=== PATIENT | female | born 1960 | race Caucasian/White ===

== ENCOUNTER → 2016-08-23 | Outpatient (CLI) | payer BC ==
[~2016-08-23] MED LIST: CYTOMEL5 MCG PO; DEXILANT30 MG PO; FLONAS; FLONASE 0.05% N16 G1; PERCOCET5/325 PO; PROTONIX PO; SINGULAIR PO; SYNTHROID PO; SYNTHROID0.05 MG PO; SYNTHROID112 MCG PO
--- NOTE | ~2016-08-23 | MY11 ---
[facility] A Service of [facility] RADIOLOGY TEXT RESULTS PATIENT: JUAN PERSON LOCATION: [facility] : 60 UNIT #: [id number] AGE: [address]: Marisa Quevedo APRN SEX: F ORDER DR: [id number] [facility] [address]. [place], [place] [address] [id number] O MR#: [id number] Acc #: [id number] NAME: JUAN PERSON. : 1960 SEX: F STUDY DATE/TIME: 08/23/2016 10:27 UNIT: [facility] ROOM: STUDY DESCRIPTION: MY Mammogram Screening Dig Rico Attending Physician: Marisa Quevedo A.P.R.N. Ordering Physician: Marisa Quevedo A.P.R.N. Primary Care Physician: Deepak Munroe M.D. MEDICAL IMAGING REPORT This report is preliminary unless electronic signature is present EXAM Bilateral digital screening mammogram with CAD. INDICATION Breast cancer screening. 55-year-old asymptomatic female. No personal or family history of breast cancer. COMPARISON 08/18/2015, 08/08/2014, 06/19/2013, 03/29/2012, 04/15/2011, 03/15/2011, 02/25/2010, 01/21/2009, 10/26/2007, 10/22/2006, 11/15/2005. FINDINGS There are scattered fibroglandular tissues. No suspicious findings are present. IMPRESSION No mammographic evidence of malignancy. Annual screening mammography and clinical breast exam are recommended. A result letter will be sent to the patient. Patients over the age of 40 are entered into a reminder system with target due date for the next mammogram. BIRADS: 1 Negative Dictated by... Emanuel Saleh M.D. THIS IS AN ELECTRONICALLY VERIFIED REPORT Emanuel Saleh M.D. at 08/25/2016 12:04 PM [facility] A Service of [facility] RADIOLOGY TEXT RESULTS PATIENT: JUAN PERSON LOCATION: [facility] : 60 UNIT #: [id number] AGE: [address]: Marisa Quevedo APRN SEX: F ORDER DR: Charly TD: 08/23/2016 13:28 JOB #: [id number] MEDICAL IMAGING REPORT COPY
== END | disposition home or self-care (01) ==
LOC: CWCC 09:55
DX: Z12.31 Encounter for screening mammogram for malignant neoplasm of breast (principal)
CPT/HCPCS: G0202

== ENCOUNTER → 2016-09-08 | Outpatient (CLI) | payer BC ==
--- NOTE | ~2016-09-08 | CT3 ---
[facility] of [facility] RADIOLOGY TEXT RESULTS PATIENT: JUAN PERSON LOCATION: [facility] : 60 UNIT #: [id number] AGE: [address]: Marisa Quevedo APRN SEX: F ORDER DR: [id number] [facility] [address] [place], [place] [address] [id number] O MR#: [id number] Acc #: [id number] NAME: JUAN PERSON : 1960 SEX: F STUDY DATE/TIME: 09/08/2016 11:58 UNIT: [facility] ROOM: STUDY DESCRIPTION: CT Abd and Pelv WWo Cont Attending Physician: Marisa Quevedo A.P.R.N. Referring Physician: Marisa Quevedo A.P.R.N. Ordering Physician: Marisa Quevedo A.P.R.N. Primary Care Physician: Deepak Munroe M.D. MEDICAL IMAGING REPORT This report is preliminary unless electronic signature is present EXAM Abdomen and pelvis CT without and with contrast renal protocol, 09/08/2016. INDICATION 56-year-old female with microscopic hematuria for a month. History of thyroid malignancy and radiation therapy 6 years ago. Status post cholecystectomy in 2008. TECHNIQUE Noncontrast imaging of the abdomen and pelvis was performed. This was followed by contrast-enhanced imaging of the abdomen and pelvis with attention to the kidneys. Imaging of the kidneys was performed in multiple postcontrast phases. 5-minute delayed phase imaging of the abdomen and pelvis was also performed. This CT exam was performed with one or more of the following radiation dose reduction techniques: automatic exposure control, adjustment of mA and/or kV according to patient size, and iterative reconstruction. COMPARISON 12/06/[address] ABDOMEN: No contrast. Included lung bases are clear. The gallbladder is surgically absent. Kidneys demonstrate no radiopaque stone or hydronephrosis on either side. Visualized ureters demonstrate no convincing evidence of radiopaque stone on either side. At the level of the distal right ureter, there is a probable vascular calcification intimately associated with the distal right ureter. It would be impossible to fully exclude a tiny distal ureteral stone however. It is faintly visible on delayed-phase images dictated herein. [facility] of [facility] RADIOLOGY TEXT RESULTS PATIENT: JUAN PERSON LOCATION: [facility] : 60 UNIT #: [id number] AGE: [address]: Marisa Quevedo APRN SEX: F ORDER DR: No other suspicious calcifications in the abdomen. CT PELVIS: No bladder wall calcification or evidence of a recently passed stone. Leiomyomatous change of the uterus. There are additional vascular calcifications in the pelvis. CONTRAST-ENHANCED ABDOMEN: Kidneys enhance symmetrically. No hydronephrosis or inflammatory change on either side. Opacified aspects of the renal collecting systems are unremarkable. Opacified aspects of the ureters unremarkable. The spleen and adrenal glands are unremarkable. The pancreas is unremarkable. Liver is unremarkable. The entirety of the solid abdominal organs are not included in the field of view on all series due to tailoring this study for evaluation of the kidneys. Reactive-appearing mesenteric nodes are present similar to the prior [address] PELVIS: The bladder demonstrates no filling defect or focal intraluminal mass or wall thickening. No drainable fluid collection in the pelvis. No adnexal mass. Extensive leiomyomatous change of the uterus at the level of the uterine fundus, some of the fibroids are calcified. There is colonic diverticulosis but no evidence of diverticulitis or inflammatory change of the bowel. Appendix normal. Inguinal canals unremarkable. There is a tiny umbilical hernia containing fat only. No suspicious bone lesion. IMPRESSION 1. No radiopaque stone or hydronephrosis of either kidney. 2. Probable vascular calcification intimately associated with the distal right ureter. It would be impossible to fully exclude a distal ureteral stone but even if this does represent a tiny distal ureteral stone. There is no hydroureteronephrosis or inflammatory change on the right. 3. Kidneys are otherwise unremarkable. There is no cystic or solid mass on either side. 4. Bladder unremarkable. 5. Incidental CT findings include the followin) Leiomyomatous change of the uterus. 2) Diverticulosis. 3) Status post cholecystectomy. 4) Normal appendix. Dictated by... Carlitos Rodriguez M.D. THIS IS AN ELECTRONICALLY VERIFIED REPORT [facility] RADIOLOGY TEXT RESULTS PATIENT: JUAN PERSON LOCATION: [facility] : 60 UNIT #: [id number] AGE: [address]: Marisa Quevedo APRN SEX: F ORDER DR: Carlitos Rodriguez M.D. at 09/08/2016 4:36 PM ROHINI/candace TD: 09/08/2016 16:10 JOB #: [id number] MEDICAL IMAGING REPORT COPY
== END | disposition home or self-care (01) ==
LOC: CCAT 09:44
DX: R31.29 Other microscopic hematuria (principal)
CPT/HCPCS: 74178; Q9967